=== PATIENT | female | born 1985 | race Two or more races ===

== ENCOUNTER 2020-03-08 14:50 | Emergency (ER) | payer MEDICAID, OTHER ==
[~2020-03-08] VITALS: Ht 147.3 cm; Wt 70.3 kg
[2020-03-08 15:31] VITALS: BP 144/89
== END 2020-03-08 19:07 | disposition left against medical advice (07) ==
LOC: ER 14:50
DX: R07.89 Other chest pain (principal); Z90.710 Acquired absence of both cervix and uterus
CPT/HCPCS: 93005